=== PATIENT | male | born 1970 | race Two or more races ===

== ENCOUNTER 2024-03-11 10:04 | Emergency (ER) | payer OTHER ==
[~2024-03-11] VITALS: Ht 182.9 cm; Wt 106.1 kg
[2024-03-11 10:11] VITALS: BP 137/91; O2SAT 100
[2024-03-11] MEDS ORDERED: OZEMPIC1 MG/0.71 SQ (10:11)
[2024-03-11 11:08] LABS: HEMATOCRIT 44.7 % (39.0-48.0); HEMOGLOBIN 15.2 g/dL (13-16.00); MEAN CELL VOLUME 95.3 fL (80.0-100.00); MEAN CORPUSCULAR HEMOGLOBIN 32.5 pg (27.00-32.0); MEAN CORPUSCULAR HGB CONC 34.1 g/dl (32.0-36.0); PLATELET COUNT 283 K/uL (150-450); RED BLOOD COUNT 4.69 M/uL (4.00-6.00); RED CELL DISTRIBUTION WIDTH 13.1 % (11.5-14.5)
[2024-03-11 11:17] LABS: INR 1.07; PARTIAL THROMBOPLASTIN TIME 27.7 SECONDS (22.0-34.0); PROTHROMBIN TIME 11.6 SECONDS (9.0-11.5)
[2024-03-11 11:50] LABS: PH,URINE 5.5 (5.0-8.0); URINE APPEARANCE Clear; URINE BILIRRUBIN Negative (NEGATIVE); URINE BLOOD Negative; URINE COLOR Yellow; URINE GLUCOSE Negative (NEGATIVE); URINE KETONE Negative (NEGATIVE); URINE LEUKOCYTE Negative; URINE NITRATE Negative; URINE PROTEIN Negative (NEGATIVE)
[2024-03-11 11:55] LABS: URINE EPITHELIAL CELLS 6.4 uL (0.0-38.8); URINE WBC 4.5 uL (0.0-23.2)
[2024-03-11 12:01] LABS: URINE BACTERIA 2.4 uL (0.0-1933); URINE CAST 0.29 uL (0.0-1.40); URINE RBC 0.5 uL (0.0-20.8)
[2024-03-11 12:11] LABS: CALCIUM 9.3 mg/dL (8.5-10.1); CREATININE SERUM 0.94 mg/dL (0.70-1.30); GFR 84.61; POTASSIUM 4.24 mEq/L (3.5-5.1)
== END 2024-03-11 13:15 | disposition home or self-care (01) ==
LOC: ER 10:04
PROVIDERS: General Practice
DX: R53.81 Other malaise (principal); E16.2 Hypoglycemia, unspecified; E11.9 Type 2 diabetes mellitus without complications